=== PATIENT | female | born 1980 | race Caucasian/White ===

== ENCOUNTER 2018-03-21 05:15 | Inpatient (IN) | payer MEDICAID ==
[2018-03-21 06:03] VITALS: BMI 29.9
[2018-03-21] MEDS ORDERED: cefOXitin IV 2 gm in Dextrose 2 GM/50 ML BAG IVPB ONE (06:06)
[2018-03-21] MEDS ORDERED: Lactated Ringer's 1,000 ML IV ONE (06:06)
[2018-03-21] MEDS ORDERED: Sodium Citrate/Citric Acid 15 ml Sol PO ONE (06:06)
[2018-03-21 06:33] LABS: BASO % 0.2 % (0.0-2.0); EOS # 0.1 K/uL (0.0-0.7); EOS % 0.6 % (0.0-4.0); HEMOGLOBIN 12.1 g/dL (11.0-16.0); LYMPH # 2.6 K/uL (1.0-4.3); LYMPH % 22.5 % (20.0-40.0); MEAN CELL VOLUME 90.1 fL (81.0-99.0); MEAN CORPUSCULAR HEMOGLOBIN 30.8 pg (27.0-31.0); MEAN CORPUSCULAR HGB CONC 34.2 g/dL (33.0-37.0); MEAN PLATELET VOLUME 8.7 fL (7.2-11.7); MONO # 0.9 K/uL (0.0-0.8); MONO % 7.5 % (0.0-10.0); NEUT # 8.1 K/uL (1.8-7.0); NEUT % 69.2 % (50.0-75.0); RBC 3.91 Mil/uL (3.80-5.20); RED CELL DISTRIBUTION WIDTH 12.7 % (11.5-14.5); WHITE BLOOD COUNT 11.8 K/uL (4.8-10.8)
[2018-03-21 06:46] LABS: ALB/GLOB RATIO 1.1 (1.0-2.1); ALBUMIN 3.5 g/dL (3.5-5.0); ALT/SGPT 19 U/L (9-52); AST/SGOT 23 U/L (14-36); BLOOD UREA NITROGEN 9 mg/dL (7-17); CALCIUM 8.4 mg/dl (8.6-10.4); GFR NON-AFRICAN AMERICAN > 60
[2018-03-21 07:28] LABS: SQUAMOUS EPITHIAL 10 /hpf (0-5); URINE BACTERIA OCC (<OCC); URINE BILIRUBIN NEGATIVE (NEGATIVE); URINE BLOOD NEGATIVE (NEGATIVE); URINE CLARITY Hazy (Clear); URINE COLOR Yellow (YELLOW); URINE GLUCOSE (UA) NORMAL (Normal); URINE LEUKOCYTE ESTERASE 3+ Leu/uL (Negative); URINE PROTEIN 1+ mg/dL (NEGATIVE); URINE UROBILINOGEN NORMAL mg/dL (0.2-1.0)
[2018-03-21] MEDS ORDERED: ePHEDrine 50 mg/ml Inj ONE ×2 (07:42→08:31)
[2018-03-21] MEDS ORDERED: Morphine 4 MG/ML VIAL ONE (07:42)
[2018-03-21] MEDS ORDERED: Morphine 1 mg/ml preservative-free Inj(Duramorph) ONE ×2 (07:43)
--- NOTE | 2018-03-21 07:53 | HP ---
HISTORY OF PRESENT ILLNESS: The patient is a 38-year-old female, 1, para 0 with a due date of 04/09/2018, 37 weeks and 8 days, previous abdominal myomectomy, who is coming in for an elective section. The patient's course has been essentially unremarkable. PAST MEDICAL HISTORY: Medical history is unremarkable. SOCIAL HISTORY: She does not smoke or drink. MEDICATIONS: Currently, she is taking Vitafol-OB one tablet daily. PAST SURGICAL HISTORY: Significant for previous myomectomy x1. She is 1, para 0. ALLERGIES: NONE. PHYSICAL EXAMINATION: VITAL SIGNS: Blood pressure is 110/70, pulse is 72, respiratory rate of 20, and temperature is 98.8. HEAD, EARS, NOSE, AND THROAT: Examination is within normal. CHEST: Clear. CARDIAC: Reveals normal heart sounds without any murmurs. LUNGS: Clear. BREASTS: No masses. ABDOMEN: Symphysis-fundal height is 38 cm, longitudinal lie vertex. heart tones are normal. PELVIC: She has a normal vulva. [place], urethra, and [place]'s glands are within normal. Cervix is long, closed, and posterior. ADMITTING DIAGNOSES: Intrauterine at 37 weeks, previous section x1. PLAN: To perform a lower segment section. Prior to being scheduled for the surgical procedure, the patient underwent an informed consent, discussion, and education session with me in the hospital lasting approximately 45 minutes, during which time, I explained to her in understandable terms the following: The nature and extent of the disease process and the nature and extent of the contemplated operation. I also explained to her the risks and potential complications of the operative procedures to include, but not limited to infection, hemorrhage, deep vein thrombosis, atelectasis, pneumonia, pulmonary embolism, damage to the bladder, damage to the ureter, renal insufficiency, renal failure, wound infection, wound dehiscence, incisional hernia, keloid formation, damage to the large and small intestine, damage to inferior vena cava and the aorta requiring extensive repair, anesthesia complications, electrolyte imbalance, possibility of , low scores, breathing difficulties in the baby, and other complications that were discussed, but are not listed above. I also discussed with the patient the anticipated benefits and results of the surgery including conservative estimate of the successful outcome. I discussed with the patient what the operation would not accomplish. I informed the patient of the possibility of unanticipated pathology, requiring a more extensive procedure. All the questions from the patient were encouraged, welcomed, and answered to her satisfaction. The patient was given the opportunity to store her own blood for use in autologous blood transfusion, and she declined. Glenn Faustin MD
[2018-03-21] MEDS ORDERED: Bupivacaine HCl 15 mg/2 ml Spinal Inj ONE ×2 (08:01→08:04)
[2018-03-21] MEDS ORDERED: Oxytocin 10 Units/ml Inj ONE (08:26)
[2018-03-21] MEDS ORDERED: Oxycodone/Acetaminophen 5/325 mg Tab PO PRN ×2 (10:00)
[2018-03-21] MEDS: Prenatal Multivit/Folic Acid/Iron Tab PO SCH (11:08)
[2018-03-21] MEDS: Simethicone 80 mg Chewtab PO SCH ×4 (11:08→22:05)
[2018-03-21] MEDS: cefOXitin IV 2 gm in Dextrose 2 GM/50 ML BAG IVPB SCH ×2 (13:56→22:05)
--- NOTE | 2018-03-21 19:22 | OP ---
PROCEDURE DATE: 03/21/2018 PREOPERATIVE DIAGNOSIS: Intrauterine at 37 weeks, previous myomectomy. POSTOPERATIVE DIAGNOSIS: Intrauterine at 37 weeks, previous myomectomy. PROCEDURE: Lower segment section. FINDINGS: A live male , Apgars 9 at one minute and 9 at five minutes with normal tubes and ovaries. SURGEON: Glenn Faustin MD ANESTHESIA: Spinal. ESTIMATED BLOOD LOSS: 250 mL. COMPLICATIONS: Nil. INDICATIONS: After the risks, benefits, and alternatives of the planned procedure including, but not limited to, infection, hemorrhage, deep vein thrombosis, atelectasis, pneumonia, pulmonary embolism, damage to the bladder, damage to the ureter, renal insufficiency, renal failure, wound infection, wound dehiscence, incisional hernia, keloid formation, damage to the large and small intestines, damage to the inferior vena cava and the aorta requiring extensive repair, anesthesia complications, electrolyte imbalance, possibility of , fluid overload, cerebral edema, embolism, and other complications that were discussed, but are not listed above, have been explained to the patient and all her questions answered, informed consent was obtained. DESCRIPTION OF PROCEDURE: The patient was taken to the operating room in a stable condition. Under a suitable level of spinal analgesia, she was prepped and draped in a sterile fashion after having been placed in a supine position. The abdomen was entered through a Pfannenstiel-type incision, carried through the subcutaneous tissue to the fascia. Fascia was opened transversely and dissected off the rectus abdominis musculature. The rectus abdominis musculature was then in the midline to remove the parietal peritoneum, which was entered sharply and incised superiorly and inferiorly. The bladder peritoneum was then incised in a curvilinear fashion and dissected off the lower uterine segment. The lower uterine segment was then entered through a curvilinear incision. The patient was noted to have multiple fibroids, which were quite extensive. The infant was delivered in a right occipital anterior position. Nose and mouth were suctioned free of amniotic fluid, and the remainder of the was delivered without any difficulty. Cord was doubly clamped and cut, and the baby was handed over to the pediatricians who were in attendance. Cord blood was collected with Pitocin running. Placenta was manually removed. The endometrium was then cleaned free of remaining membranes and clots. The uterine incision was then closed in layers with the first layer being a running interlocking layer using #1 chromic and the second layer being used to imbricate the first layer. Hemostasis was good. The bladder peritoneum was then reapproximated using a running suture of 2-0 chromic. Peritoneal cavity was irrigated using copious amounts of saline. The saline was evacuated. The abdomen was then closed in layers with 0 chromic to the parietal peritoneum. Rectal muscles were reapproximated using interrupted sutures of 0 chromic. Fascia was reapproximated using two separate running sutures of 0 Vicryl to meet in the midline. Subcutaneous tissues were reapproximated using interrupted sutures of 0 plain, and the initial skin incision was reapproximated using 4-0 Vicryl in a subcuticular fashion. Estimated blood loss for the procedure was 250 mL. Pad, needle, and instrument counts were correct x2. There were no complications. Glenn Faustin MD
[2018-03-22 08:25] LABS: MEAN CORPUSCULAR HGB CONC 34.1 g/dL (33.0-37.0); MEAN PLATELET VOLUME 8.4 fL (7.2-11.7); RBC 2.87 Mil/uL (3.80-5.20); RED CELL DISTRIBUTION WIDTH 13.5 % (11.5-14.5); WHITE BLOOD COUNT 16.2 K/uL (4.8-10.8)
[2018-03-22 08:30] LABS: HEMOGLOBIN 8.9 g/dL (11.0-16.0)
[2018-03-22] MEDS: Prenatal Multivit/Folic Acid/Iron Tab PO SCH (10:21)
[2018-03-22] MEDS: Simethicone 80 mg Chewtab PO SCH ×4 (10:21→23:06)
[2018-03-22] MEDS: Enoxaparin 40 mg Syringe SC SCH (10:22)
[2018-03-22] MEDS ORDERED: Acetaminophen-Codeine 300/30 mg Tab PO PRN (12:47)
--- NOTE | 2018-03-22 13:51 | PN ---
DATE: 03/22/2018 SUBJECTIVE: The patient has no complaints. PHYSICAL EXAMINATION: VITAL SIGNS: Stable. She is afebrile. ABDOMEN: Incision is clean and intact. Bowel sounds are normal. EXTREMITIES: Nontender, with no evidence of DVT. Homans sign is negative. CHEST: Clear. CARDIAC: Normal heart sounds without any murmur. LUNGS: Clear. ASSESSMENT: The patient is status post section day #1. PLAN: To ambulate the patient and advance diet as tolerated. Glenn Faustin MD
[2018-03-22 18:16] VITALS: O2SAT 98
[2018-03-23 08:30] VITALS: RESP 20
[2018-03-23] MEDS: Enoxaparin 40 mg Syringe SC SCH (10:09)
[2018-03-23] MEDS: Prenatal Multivit/Folic Acid/Iron Tab PO SCH (10:09)
[2018-03-23] MEDS: Simethicone 80 mg Chewtab PO SCH ×3 (10:09→21:58)
--- NOTE | 2018-03-23 11:15 | OBPPN ---
Datetime: 03/23/2018 11:11 PP Pain Prov: Within normal limits PP Nausea Prov: Denies PP Flatus Prov: Yes PP BM Prov: No PP Breasts Prov: Normal PP Heart Prov: Normal PP Lungs Prov: Normal PP Abdomen/Uterus Prov: Normal PP Lochia Prov: Normal PP Vulva/Perineum Prov: Normal PP CVA Tenderness Prov: Normal PP Extremities Prov: Normal PP Impression Prov: Normal progression PP Plan Prov: Continue present management PP Progress Note Prov: PT DONG WELL, NO COMPLAINTS AT THIS TIME. MADI PO DIET, DENIES FLATUS, DENIES BM, PAIN 06/09 - VSS: AFEBRILE - ANEMIA: HGB 8.9. START IRON S/P REPEAT C/S POST OP DAY#2 VSS: AFEBRILE ENCOURAGED AMBULATION START IRON _ COLACE. -WBC 16 REPEAT CBC IN AM. - ROUTINE POST OP CARE IP PP Procedures: None
--- NOTE | 2018-03-23 11:23 | OBPPN ---
Datetime: 03/23/2018 11:20 PP Pain Prov: Within normal limits PP Nausea Prov: Denies PP Flatus Prov: Yes PP Breasts Prov: Normal PP Heart Prov: Normal PP Lungs Prov: Normal PP Abdomen/Uterus Prov: Normal PP Lochia Prov: Normal PP Vulva/Perineum Prov: Normal PP CVA Tenderness Prov: Normal PP Extremities Prov: Normal PP Progress Note Prov: PT DOING WELL. CURRENTLY NO COMPLAITS, DENIES FLATUS, DENIES BOWEL MOVEMENT, VSS:AFEBRILE HGB: 8.9 WBC 16.2 S/P REPEAT C/S POST OP #2. 1) VSS: AFEBRILE 2) ANEMIA: 8.9 START IRON _ COLACE. 3) ROUTINE POST OP CARE.
[2018-03-24 08:25] VITALS: BP 116/70; PULSE 94
[2018-03-24 08:38] LABS: BASO # 0.1 K/uL (0.0-0.2); BASO % 0.4 % (0.0-2.0); EOS # 0.3 K/uL (0.0-0.7); EOS % 2.5 % (0.0-4.0); HEMOGLOBIN 7.6 g/dL (11.0-16.0); LYMPH # 1.5 K/uL (1.0-4.3); LYMPH % 11.1 % (20.0-40.0); MEAN CELL VOLUME 90.8 fL (81.0-99.0); MEAN CORPUSCULAR HEMOGLOBIN 31.7 pg (27.0-31.0); MEAN CORPUSCULAR HGB CONC 34.9 g/dL (33.0-37.0); MEAN PLATELET VOLUME 7.4 fL (7.2-11.7); MONO # 0.8 K/uL (0.0-0.8); NEUT # 10.8 K/uL (1.8-7.0); RBC 2.4 Mil/uL (3.80-5.20); RED CELL DISTRIBUTION WIDTH 13.4 % (11.5-14.5); WHITE BLOOD COUNT 13.5 K/uL (4.8-10.8)
[2018-03-24] MEDS: Enoxaparin 40 mg Syringe SC SCH (10:22)
[2018-03-24] MEDS: Prenatal Multivit/Folic Acid/Iron Tab PO SCH (10:23)
[2018-03-24] MEDS: Simethicone 80 mg Chewtab PO SCH (10:24)
--- NOTE | 2018-03-24 11:41 | OBDCSUM ---
Datetime: 03/24/2018 11:31 Discharged to, Provider: Home Follow up at, Provider: DR Beasley Disch Instr Activity: Normal activity Disch Instr Diet: Regular Discharge Instructions, Provider: Routine instructions given Discharge Diagnosis, Provider: Term Delivered Discharge Time: 03/24/2018 11:10 Follow up in weeks, Provider: 5-7 days Disch Referrals: None Contraception discussed, Prov: Yes Disch Activity Restrictions: No exercising; No lifting; Minimize stair-climbing; No sexual activity; Nothing in vagina - [place], tampons, douche Discharge Comment, Provider: POD # 3 S/P Repeat C/S Repeated H_H today 7.6/21.8 asymptmatic Acute Anemia superimposed on chronic anemia Bloos type 0+ without complications Stable and Satisfactory condition and recovery D/C home with instructions and Rx for Motrin and Percocet, per Dr. Beasley Discharge Diagnosis Prov Other: Anemia Contraception after Delivery: Undecided Datetime: 03/24/2018 09:33 Discharged to, Provider: Home Follow up at, Provider: Dr. Beasley Disch Instr Activity: Normal activity Disch Instr Diet: Regular Discharge Time: 03/24/2018 10:59 Follow up in weeks, Provider: Sunday03/29/2018 Disch Referrals: None Disch Activity Restrictions: No exercising; No lifting; No driving; Minimize stair-climbing; No sexu al activity; Nothing in vagina - [place], tampons, douche
[2018-03-24 18:33] VITALS: TEMP 99.1
--- NOTE | 2018-03-24 19:23 | PN ---
DATE: 03/24/2018 SUBJECTIVE: The patient has no complaints. She had a bowel movement. Hematocrit is 21, but the patient is asymptomatic. She was offered blood transfusion and she declined. PHYSICAL EXAMINATION: VITAL SIGNS: Stable. Afebrile. ABDOMEN: Incision is clean and intact. CHEST: Clear. CARDIAC: Exam reveals normal heart sounds without any murmurs. EXTREMITIES: Nontender. Homans sign is negative. ASSESSMENT: The patient is status post section, day #3. PLAN: To discharge the patient on Keflex 500 mg four times daily x7 days, Tylenol No. 3 one tablet every 4 hours p.r.n. for a total of 40 tablets, and iron sulfate 325 mg twice daily, to be followed up in the office in 1 week. Glenn Faustin MD
--- NOTE | 2018-03-25 04:28 | DS ---
The patient is a 38-year-old female, 2, para 1, at 37 weeks 5 days who was admitted for previous myomectomy at 37 weeks for an elective section. She underwent a lower segment section, delivered a live male , Apgars 9 at one minute and 9 at five minutes with normal tubes and ovaries. Her postoperative course was significant for low hematocrit, but the patient was asymptomatic, declined blood transfusion. She was discharged home on iron sulphate 325 mg twice daily for 30 days with six refills, Tylenol No. 3 one tablet every 4 hours p.r.n. for a total of 20 tablets and Keflex 500 mg 4 times a day x7 days. She will follow up in the office in one week. Glenn Faustin MD
--- NOTE | 2018-03-25 14:04 | OBDS ---
DELIVERY PERSONNEL Delivery Doctor: RaminEmi MD Scrub Nurse: NicolejimyMary diop OBT Polysomnographic Tech: DominiqueVinod howell RN Anesthesiologist: dr mead MATERNAL INFORMATION Delivery Anesthesia: Spinal Medications in Delivery: pitocin 20 Placenta Cultured: Yes Maternal Complications: Other LABOR SUMMARY EDC: 04/09/2018 00:00 No. Babies in Womb: 1 Attempted: No Labor Anesthesia: None LABOR INFORMATION Oxytocin: N/A Group B Beta Strep: unknown Steroids Given: None Reason Steroids Not Administered: Not Applicable STAGES OF LABOR Stage 3 hrs: 0 Stage 3 min: 1 CSECTION DELIVERY Primary Indication: Previous Myomectomy BABY A INFORMATION Delivery Date/Time: 03/21/2018 08:21 Method of Delivery: Born in Route : No : N/A Forceps: N/A Vacuum Extraction: N/A Shoulder Dystocia : No SHOULDER DYSTOCIA BABY A Infant Delivery Date/Time: 03/21/2018 08:21 PRESENTATION/POSITION BABY A Presentation: Cephalic Cephalic Presentation: Vertex Breech Presentation: N/A PLACENTA INFORMATION BABY A Placenta Delivery Time : 03/21/2018 08:22 Placenta Method of Delivery: Expressed Placenta Status: Delivered SCORES BABY A Heart Rate 1 min: >100 bpm Resp Effort 1 min: Good Cry Reflex Irritability 1 min: Cough or Sneeze or Pulls Away Muscle Tone 1 min: Active Motion Color 1 min: Body [place], Extremities Blue Resuscitation Effort 1 min: Tactile Stimulation SCORE 1 MIN: 9 Heart Rate 5 min: >100 bpm Resp Effort 5 min: Good Cry Reflex Irritability 5 min: Cough or Sneeze or Pulls Away Muscle Tone 5 min: Active Motion Color 5 min: Body [place], Extremities Blue SCORE 5 MIN: 9 INFORMATION BABY A Gestational Age at Delivery: 37.2 Gestational Status: Term Infant Outcome : Liveborn Condition : Stable Sex: Male IDENTIFICATION/MEDS BABY A ID Band Number: [id number] ID Band Location: Left Leg; Left Arm Sensor Applied: Yes Sensor Number: [id number] Sensor Location : Cord Clamp WEIGHT/LENGTH BABY A Birthweight (gms): 3155 Weight (lb): 6 Weight (oz): 15 Length Inches: 18.25 Infant Length cms: 46.4 CORD INFORMATION BABY A No. Cord Vessels: 3 Nuchal Cord : N/A Cord Blood Taken: Yes Suction: Mouth; Nose ASSESSMENT BABY A Complications: None Physical Findings at Delivery: Within Normal Limits Infant Respirations: Appears Normal Loan Servicing Specialist/ALS Called : No Infant Care By: dr taylor Transferred To: Remains with Mother
== END 2018-03-24 14:15 | disposition home or self-care (01) | DRG 370 ==
LOC: C.4D 05:15 → C.4M 10:54
PROVIDERS: ADMIT Obstetrics & Gynecology Reproductive Endocrinology; ATTEND Obstetrics & Gynecology Reproductive Endocrinology
PROC: 10D00Z1 Extraction of Products of Conception, Low, Open Approach (ICD-10-PCS; principal; 2018-03-21)
DX: O34.211 Maternal care for low transverse scar from previous cesarean delivery (principal); O99.02 Anemia complicating childbirth; Z37.0 Single live birth; Z3A.37 37 weeks gestation of pregnancy; D64.9 Anemia, unspecified